=== PATIENT | female | born 1990 | race Caucasian/White ===

== ENCOUNTER 2016-08-17 11:18 | Emergency (ER) | payer SELFPAY ==
[~2016-08-17] VITALS: Ht 157.5 cm; Wt 85.1 kg
[~2016-08-17 11:18] MED LIST: ACET325T51 PO; BACL20TA PO; NO ROUTINE MEDS
[2016-08-17 11:21] VITALS: Ht 157.5 cm; Wt 85.1 kg
--- OUTSIDE RECORDS SUMMARY | 2016-08-17 11:21 | XMS REPORT | Continuity of Care Document ---
Author Author [facility] Organization [facility] Address Unknown Phone Unavailable Support Name Relationship Address Phone JULIANNA BAIG MD Caregiver [address] [place] [address] [place] [address] Unavailable BLAN[place], ANTION Next Of Kin [address] [phone] Insurance Providers Guarantor Ary Torres Address [address] [address] Email DENIED/04-04-16 Payer Self Pay Subscriber's Name Ary Torres Relationship 18 Self Chief Complaint and Reason for Visit Chief Complaint Low Back Pain or Injury Reason for Visit Contusion of rib on right side Fall on same level [id number] Problems Active Problems Medical Problem Onset Date Status Gastroenteritis Unknown Acute Sinusitis Unknown Acute Past Problems Medical Problem Onset Date Contusion of rib on right side Unknown Fall on same level Unknown Gastroenteritis Unknown Low back sprain Unknown Panic attacks Unknown Medications Current Home Medications Medication Dose Units Route Directions Days Qty Instructions Start Date Acetaminophen 325 Mg Tablet 2 Tab Oral Every 6 Hours as needed for Pain 03/03/16 Baclofen 20 Mg Tablet 1 Tab Oral Three Times A Day as needed for Pain &/Or Spasm 20 Tablet 04/04/16 No Routine Meds 03/03/16 Social History Social History Problem Response Recorded Date/Time Onset Date Status Hx Substance Use No 04/04/2016 5:16pm Not Applicable Not Applicable Hx Alcohol Use No 04/04/2016 5:16pm Not Applicable Not Applicable Query Response Start Date Stop Date Smoking Status Current some day smoker Hospital Discharge Instructions No hospital discharge instructions. Plan of Care Discharge Date 04/04/16 7:31pm Disposition 01 DISCHARGED HOME, SELF-CARE Condition at Discharge Stable Instructions/Education Provided Activity May Be Better then Rest for Low Back Pain Recovery Prescriptions See Medication Section Additional Instructions/Education Recommend ibuprofen 800 mg every 8 hours, will provide baclofen as an antispasmodic. Establish herself with a PCP for follow-up Care Plan and Goals Physician Care Plan Problem: Rib contusion, low back sprain Goal: Follow up with primary care provider Instructions: Take medications and follow care plan as discussed/written Functional Status No functional status results. Allergies, Adverse Reactions, Alerts No known allergies. Immunizations Query Response on File Recorded Date/Time Influenza Vaccine Hx NO 04/04/16 5:16pm Vital Signs Acute Vital Signs Vital Response Date/Time Temperature (Fahrenheit) 98.3 deg F (96.8 - 99.1) 04/04/2016 7:31pm Temperature (Calculated Celsius) 36.17871 degrees C (36.0 - 37.3) 04/04/2016 7:31pm Pulse Rate (adult) 66 bpm (60 - 100) 04/04/2016 7:31pm Respiratory Rate 20 breaths/min (10 - 20) 04/04/2016 7:31pm O2 Sat by Pulse Oximetry 94 % (90 - 100) 04/04/2016 7:31pm Blood Pressure 108/68 mm Hg 04/04/2016 7:31pm Height (Feet) 5 feet 04/04/2016 2:50pm Height (Inches) 4.00 inches 04/04/2016 2:50pm Weight (Kilograms) 65.000 kg 04/04/2016 2:50pm Body Mass Index (BMI) 24.0 04/04/2016 2:50pm Results Laboratory Results Test Name Result Units Flags Reference Collection Date/Time Result Date/ Time Comments White Blood Count 7.3 T/MM3 4.5-11.0 01/09/2016 9:12pm 01/09/2016 9: 19pm Red Blood Count 4.84 M/MM3 4.00-5.20 01/09/2016 9:12pm 01/09/2016 9: 19pm Hemoglobin 14.3 GM/DL -01/09/2016 9:12pm 01/09/2016 9:19pm Hematocrit 43.4 % 36-46 01/09/2016 9:12pm 01/09/2016 9:19pm Mean Corpuscular Volume 89.7 UM3 80-100 01/09/2016 9:12pm 01/09/2016 9: 19pm Mean Corpuscular Hemoglobin 29.5 UUG 26-34 01/09/2016 9:12pm 2015 9:19pm Mean Corpuscular Hemoglobin Concent 32.9 GM/DL 31-37 01/09/2016 9:12pm 01/09/2016 9:19pm RDW Standard Deviation 43.4 FL 36.9-50.2 01/09/2016 9:12p 01/09/2016 9 :19pm Platelet Count 243 T/MM3 130-400 01/09/2016 9:12pm 01/09/2016 9:19pm Mean Platelet Volume 10.6 UM3 9.4-12.4 01/09/2016 9:12pm 01/09/2016 9: 19pm Neutrophils (%) (Auto) 53.6 % 33-66 01/09/2016 9:12pm 01/09/2016 9: 19pm Lymphocytes (%) (Auto) 35.5 % 23-45 01/09/2016 9:12p 01/09/2016 9: 19pm Monocytes (%) (Auto) 5.8 % 0-9.0 01/09/2016 9:12p 01/09/2016 9:19pm Eosinophils (%) (Auto) 4.4 % H 0-4 01/09/2016 9:12p 01/09/2016 9:19pm Basophils (%) (Auto) 0.6 % 0-2 01/09/2016 9:12p 01/09/2016 9:19pm Immature Granulocyte % (Auto) 0.1 % 0.0-0.5 01/09/2016 9:12p 2015 9:19pm Absolute Neutrophils (auto) 3.9 T/MM3 1.8-7.7 01/09/2016 9:12p 2015 9:19pm Absolute Lymphocytes (auto) 2.6 T/MM3 1-4.8 01/09/2016 9:12p 2015 9:19pm Absolute Monocytes (auto) 0.4 T/MM3 0-0.8 01/09/2016 9:12p 01/09/2016 9:19pm Absolute Eosinophils (auto) 0.3 T/MM3 0-0.5 01/09/2016 9:12p 2015 9:19pm Absolute Basophils (auto) 0.0 T/MM3 0-0.2 01/09/2016 9:12p 01/09/2016 9:19pm Absolute Immature Granulocyte (auto 0.01 T/MM3 0.00-0.03 01/09/2016 9: 01/09/2016 9:19pm Icterus Index < 2 0-7 01/09/2016 9:01/09/2016 9:27pm Chemistry Specimen Hemolysis < 15 0-25 01/09/2016 9:01/09/2016 9 :27pm 0-25: Specimen Exhibited No Hemolysis. Turbidity < 20 0-20 01/09/2016 9:01/09/2016 9:27pm Sodium Level 144 MEQ/L 134-144 01/09/2016 9:01/09/2016 9:27pm Potassium Level 4.0 MEQ/L 3.6-5 01/09/2016 9:01/09/2016 9:27pm Chloride Level 104 MEQ/L 98-107 01/09/2016 9:01/09/2016 9:27pm Carbon Dioxide Level 27 MEQ/L 22-30 01/09/2016 9:01/09/2016 9: 27pm Anion Gap 13 MEQ/L 5-15 01/09/2016 9:01/09/2016 9:27pm Blood Urea Nitrogen 12.0 MG/DL 7-17 01/09/2016 9:01/09/2016 9: 27pm Creatinine 0.7 MG/DL 0.7-1.2 01/09/2016 9:01/09/2016 9:27pm BUN/Creatinine Ratio 17 RATIO 6-26 01/09/2016 9:01/09/2016 9:27pm Glomerular Filtration Rate Calc 100 01/09/2016 9:01/09/2016 9: 27pm Glucose Level 91 MG/DL 65-110 01/09/2016 9:01/09/2016 9:27pm Calculated Osmolality 277 MOSM/KG 261-280 01/09/2016 9:01/09/2016 9:27pm Calcium Level 9.5 MG/DL 8.4-10.2 01/09/2016 9:01/09/2016 9:27pm Total Bilirubin 0.50 MG/DL 0.20-1.30 01/09/2016 9:12p01/09/2016 9: 27pm Alkaline Phosphatase 93 U/L 38-126 01/09/2016 9:01/09/2016 9:27pm Total Protein 7.4 G/DL 6.3-8.2 01/09/2016 9:12pm 01/09/2016 9:27pm Albumin 4.4 G/DL 3.5-5.0 01/09/2016 9:12pm 01/09/2016 9:27pm Globulin 3.0 G/DL 2.4-3.6 01/09/2016 9:12pm 01/09/2016 9:27pm Albumin/Globulin Ratio 1.5 RATIO 1.1-2.2 01/09/2016 9:12pm 01/09/2016 9 :27pm Aspartate Amino Transf (AST/SGOT) 23 U/L 14-36 01/09/2016 9:12pm 2015 9:27pm Alanine Aminotransferase (ALT/SGPT) 34 U/L 9-52 01/09/2016 9:12pm 01/08 9:27pm Lipase 160 U/L 23-300 01/09/2016 9:12pm 01/09/2016 9:27pm Adenovirus (PCR) NEGATIVE NEGATIVE 01/09/2016 9:07pm 01/09/2016 10: 36pm Coronavirus Type 229E (PCR) NEGATIVE NEGATIVE 01/09/2016 9:07pm 01/08 10:36pm Coronavirus Type HKU1 (PCR) NEGATIVE NEGATIVE 01/09/2016 9:07pm 01/08 10:36pm Coronavirus Type NL63 (PCR) NEGATIVE NEGATIVE 01/09/2016 9:07pm 01/08 10:36pm Coronavirus Type OC43 (PCR) NEGATIVE NEGATIVE 01/09/2016 9:07pm 01/08 10:36pm Human Metapneumovirus (PCR) NEGATIVE NEGATIVE 01/09/2016 9:07pm 01/08 10:36pm Enterovirus/Rhinovirus (PCR) NEGATIVE NEGATIVE 01/09/2016 9:07pm 10:36pm Influenza Virus Type A (PCR) NEGATIVE NEGATIVE 01/09/2016 9:07pm 10:36pm Influenza Virus Type B (PCR) NEGATIVE NEGATIVE 01/09/2016 9:07pm 10:36pm Parainfluenza Type 1 (PCR) NEGATIVE NEGATIVE 01/09/2016 9:07pm 2015 10:36pm Parainfluenza Type 2 (PCR) NEGATIVE NEGATIVE 01/09/2016 9:07pm 2015 10:36pm Parainfluenza Type 3 (PCR) NEGATIVE NEGATIVE 01/09/2016 9:07pm 2015 10:36pm Parainfluenza Type 4 (PCR) NEGATIVE NEGATIVE 01/09/2016 9:07pm 2015 10:36pm Respiratory Syncytial Virus (PCR) NEGATIVE NEGATIVE 01/09/2016 9:07pm 01/09/2016 10:36pm Bordetella parapertussis DNA (PCR) NEGATIVE NEGATIVE 01/09/2016 9: 07pm 01/09/2016 10:36pm Chlamydia pneumoniae DNA (PCR) NEGATIVE NEGATIVE 01/09/2016 9:07pm 10:36pm Mycoplasma pneumoniae (PCR) NEGATIVE NEGATIVE 01/09/2016 9:07pm 01/08 10:36pm Urine Collection Type CLEANCATCH-MIDSTREAM 01/09/2016 10:00pm 01/08 10:05pm Urine Color YELLOW YELLOW 01/09/2016 10:00pm 01/09/2016 10:05pm Urine Turbidity CLOUDY CLEAR 01/09/2016 10:00pm 01/09/2016 10:05pm Urine Specific [place] 1.020 1.015-1.025 01/09/2016 10:00pm 2015 10:05pm Urine pH 7.5 5.0-8.0 01/09/2016 10:00pm 01/09/2016 10:05pm Urine Leukocyte Esterase NEGATIVE NEGATIVE 01/09/2016 10:00pm 2015 10:05pm Urine Nitrite NEGATIVE NEGATIVE 01/09/2016 10:00pm 01/09/2016 10: 05pm Urine Protein NEGATIVE NEGATIVE 01/09/2016 10:00pm 01/09/2016 10: 05pm Urine Glucose (UA) NEGATIVE NEGATIVE 01/09/2016 10:00pm 01/09/2016 10 :05pm Urine Ketones NEGATIVE NEGATIVE 01/09/2016 10:00pm 01/09/2016 10: 05pm Urine Urobilinogen 0.2 EU/DL NORMAL 01/09/2016 10:00pm 01/09/2016 10: 05pm Urine Bilirubin NEGATIVE NEGATIVE 01/09/2016 10:00pm 01/09/2016 10: 05pm Urine Blood NEGATIVE NEGATIVE 01/09/2016 10:00pm 01/09/2016 10:05pm Urinalysis Comment MICROSCOPIC NOT IND. 01/09/2016 10:00pm 2015 10:05pm Procedures No known history of procedures. Encounters Encounter Location Arrival/Admit Date Discharge/Depart Date Attending Provider Departed Emergency Room [facility] 04/04/16 2:40pm 04/04/16 7: 31pm JULIANNA BAIG MD Departed Emergency Room [facility] 03/03/16 12:53pm 03/03/16 1: 30pm JULYARACELI DO Departed Emergency Room [facility] 01/09/16 8:04pm 01/09/16 11: 15pm DANISHA KIDD MD Recent Diagnosis
[2016-08-17] MEDS ORDERED: NORMAL SALINE 1,000 ML IV ONE (11:33)
[2016-08-17 11:59] LABS: BASOPHILS # (AUTO) 0.1 T/MM3 (0-0.2); BASOPHILS % (AUTO) 0.8 % (0-2); EOSINOPHILS # (AUTO) 0.4 T/MM3 (0-0.5); EOSINOPHILS % (AUTO) 5.8 % (0-4); HCT - HEMATOCRIT 43.3 % (36-46); HGB - HEMOGLOBIN 14.4 GM/DL (12-16); IMMATURE GRANULOCYTE # (AUTO) 0.01 T/MM3 (0.00-0.03); IMMATURE GRANULOCYTE % (AUTO) 0.2 % (0.0-0.5); MEAN CORPUSCULAR HGB 29.8 UUG (26-34); MEAN CORPUSCULAR HGB CONC(MCHC 33.3 GM/DL (31-37); MEAN CORPUSCULAR VOLUME 89.6 UM3 (80-100); MEAN PLATELET VOLUME 10.8 UM3 (9.4-12.4); MONOCYTES # (AUTO) 0.4 T/MM3 (0-0.8); MONOCYTES % (AUTO) 5.3 % (0-9.0); NEUTROPHILS #(AUTO)-ABSOLUTE 3.8 T/MM3 (1.8-7.7); NEUTROPHILS % (AUTO) 57.9 % (33-66); RED BLOOD COUNT 4.83 M/MM3 (4.00-5.20); WBC - WHITE BLOOD COUNT 6.6 T/MM3 (4.5-11.0)
[2016-08-17 12:06] LABS: INR 1.05 (0.77-1.03); PROTHROMBIN TIME 11.5 SEC (9.48-12.52); PTT 30.6 SEC (24-36)
[2016-08-17 12:08] LABS: ANION GAP 11 MEQ/L (5-15); BUN/CREATININE RATIO 9 RATIO (6-26); CHLORIDE 107 MEQ/L (98-107); CO2 - CARBON DIOXIDE 26 MEQ/L (22-30); CREATININE 0.7 MG/DL (0.7-1.2); GLOMERULAR FILTRATION RATE 100; GLUCOSE 102 MG/DL (65-110); POTASSIUM 3.9 MEQ/L (3.6-5); SODIUM 144 MEQ/L (134-144)
[2016-08-17 12:25] LABS: HCG-QUANTITATIVE < 2.39 mIU/mL
[2016-08-17 13:24] LABS: BLOOD, URINE 3+ (NEGATIVE); COLOR,URINE YELLOW (YELLOW); LEUKOCYTE ESTERASE ,URINE NEGATIVE (NEGATIVE); NITRITE,URINE NEGATIVE (NEGATIVE); UROBILINOGEN,URINE 0.2 EU/DL (NORMAL)
[2016-08-17 13:32] LABS: WBC,URINE 0-1 /HPF (0-5)
[2016-08-17 13:33] LABS: BACTERIA,URINE 1+ (NEGATIVE); SQUAMOUS EPITHELIAL CELL,UR 0-5
--- NOTE | 2016-08-17 13:41 | ERPDOC ---
Departure Disposition Decision Date: August 17, 2016 Disposition Decision Time: 13:39 Disposition: 01 DISCHARGED HOME, SELF-CARE Impression Impression Impression: Primary Impression: Vaginal bleeding Additional Impression: Hirsutism Severity: Moderate Condition: Improved Seen By: Physician only Referrals: YOUR DOCTOR Patient Instructions: First Trimester Vaginal Bleed (ED) Problems/Meds/Labs Reviewed?: Yes Medications reviewed and manag: Yes Additional Instructions: You have vaginal bleeding without abnormal labs. You may have had a miscarriage. Follow up with your doctor if your bleeding does not slow/stop over the next few days. Consider a discussion with your doctor of testing for PCOS and treatment to improve your chances of conception and carrying to term. Follow up care ordered?: Yes Mental Status: Alert, Oriented HPI - Female General Chief Complaint: Female Urogenital Problems Stated Complaint: WEAKNESS, POSS ANEMIA Time Seen by Provider: 11:33 Source: patient Exam Limitations: no limitations HPI - Female Initial Comments 26yo , LMP 04 JUL 2016 presents today with vaginal bleeding. Pt had a home test that was 'faintly positive'. Today, pt sat on the toilet; when she stood up there was blood everywhere and a 'ping pong sized clot'. Pt has never passed a clot that big. She is here for evaluation. Occurred At: home Onset: Rapid Duration: 4-6 hrs Pain Scale: Now & Worst: 2/10 Severity/Quality: cramping Location: vaginal Radiation: none Activities at Onset: none Prior Genitourinary Problems: none Modifying Factors: IMPROVES WITH: analgesics, rest, WORSE WITH: movement Associated Symptoms: denies symptoms Hx of Similar Symptoms: No Is Pt now?: Yes Hx Last Menstrual Period: 07/04/2016 : 1 Para: 0 Number of Living Children: 0 Abortions (Spont. & Elec.): 1 Allergies: Coded Allergies: No Known Allergies (Unverified , 08/17/16) Past History Past Medical History Female: miscarriage Psychological: anxiety Surgical History Denies Surgeries Social History Substance Use Type: does not use Alcohol Intake: none Housing: homeless Household Members: significant other Current Occupational Status: employed Review of Systems Female: other (Vaginal bleeding) : see HPI Physical Exam General General Nourishment: well nourished, well developed, appears stated age, no acute distress, adult, obese General Body Habitus: well groomed Vitals and Pain First Documented Vital Signs Date Time Temp Pulse Resp B/P Pulse Ox O2 Delivery O2 Flow Rate FiO2 08/17/16 11:21 98.4 67 18 116/83 100 Room Air Weight: Kilograms: 85.100 Height (feet): 5 Height (inches): 2.00 Triage Pain Scale: RN VS reviewed by Provider: Yes Normal Exams: Head: Normocephalic w/o trauma Eyes: Pupils are PERRLA w/ EOMI, No scleral icterus, irritation ENMT: No facial trauma, nasal exudates, pharyngeal erythema Neck: Full range of motion, without adenopathy, JVD Chest/Resp: Clear all hannah, with good airflow, and symmetry bilaterally CV: Regular rate and rhythm, without murmur or gallop, Pulses 2+ all extremities Lymphatic: No lymphadenopathy Musculoskeletal: No tenderness, or deformity noted Integumentary: No rashes, hives, or bruising noted Neurologic: Patient is alert, and oriented Psychiatric: Patient exhibits, appropriate attention ENMT (brief) Comments Dark, shaved hair on underside of pts mandible Differential Diagnoses Considering: Complete (spont), Missed (spont), Threatened AB (spont), Dysmenorrhea, Menorrhagia, New Diagnosis, Pyelonephritis, Renal Colic, UTI Progress Results/Orders Orders Procedure Category Date Status Time Iv Lock (Ed Only) EDM 08/17/16 Transmitted 11:33 Orthostatic Bp/Pulse EDM 08/17/16 Transmitted 11:33 Oxygen Administration EDM 08/17/16 Transmitted 11:33 Cbc W/Auto LAB 08/17/16 Complete Diff-Reflex Manual 11:33 Bmp - Basic Metabolic LAB 08/17/16 Complete Panel 11:33 INR LAB 08/17/16 Complete 11:33 PTT LAB 08/17/16 Complete 11:33 Hcg-Quantitative LAB 08/17/16 Complete 11:33 Type And Screen BBK 08/17/16 Complete 11:33 Normal Saline (Normal PHA 08/17/16 Complete Saline Iv) 11:33 UA, LAB 08/17/16 Complete Dip&Micro(Complete) & 13:11 Lab Results Laboratory Tests Test 08/17/16 11:48 08/17/16 13:11 White Blood Count 6.6T/MM3 Red Blood Count 4.83M/MM3 Hemoglobin 14.4GM/DL Hematocrit 43.3% Mean Corpuscular Volume 89.6UM3 Mean Corpuscular Hemoglobin 29.8UUG Mean Corpuscular Hemoglobin Concent 33.3GM/DL RDW Standard Deviation 43.1FL Platelet Count 233T/MM3 Mean Platelet Volume 10.8UM3 Immature Granulocyte % (Auto) 0.2% Neutrophils (%) (Auto) 57.9% Lymphocytes (%) (Auto) 30.0% Monocytes (%) (Auto) 5.3% Eosinophils (%) (Auto) 5.8% Basophils (%) (Auto) 0.8% Absolute Immature Granulocyte (auto 0.01T/MM3 Absolute Neutrophils (auto) 3.8T/MM3 Absolute Lymphocytes (auto) 2.0T/MM3 Absolute Monocytes (auto) 0.4T/MM3 Absolute Eosinophils (auto) 0.4T/MM3 Absolute Basophils (auto) 0.1T/MM3 Prothromb Time International Ratio 1.05 Activated Partial Thromboplast Time 30.6SEC Turbidity < 20 Sodium Level 144MEQ/L Potassium Level 3.9MEQ/L Chloride Level 107MEQ/L Carbon Dioxide Level 26MEQ/L Anion Gap 11MEQ/L Blood Urea Nitrogen 6.0MG/DL Creatinine 0.7MG/DL Glomerular Filtration Rate Calc 100 BUN/Creatinine Ratio 9RATIO Glucose Level 102MG/DL Calculated Osmolality 275MOSM/KG Calcium Level 9.0MG/DL Icterus Index < 2 Beta HCG, Quantitative < 2.39mIU/mL Chemistry Specimen Hemolysis < 15 Urine Collection Type Cleancatch-midstream Urine Color Yellow Urine Turbidity Clear Urine pH 8.0 Urine Specific [place] 1.010 Urine Protein Negative Urine Glucose (UA) Negative Urine Ketones Negative Urine Blood 3+ Urine Nitrite Negative Urine Bilirubin Negative Urine Urobilinogen 0.2EU/DL Urine Leukocyte Esterase Negative Urine RBC 3-5/HPF Urine WBC 0-1/HPF Urine Squamous Epithelial Cells 0-5 Urine Bacteria 1+ Urine Culture Indicated Cult not indicated Medications Current ED Medications Sodium Chloride (Normal Saline IV) 1,000 ml @ 0 mls/hr Q0M ONCE IV Last administered on 08/17/16 12:00; Start 08/17/16 at 11:33; Stop 08/17/16 at 11:35 ; Status DC Progress Progress 26yo woman with vaginal bleeding 6wks after her last menses and a 'faintly positive' urine test. Pt likely did have a miscarriage; pt now . Pt offered and declines pelvic exam at this time. Recommended that pt f /u with her PCM, especially if vaginal bleeding does not ease/stop. Recommended that pt discuss possibility of PCOS/treatment with PCM in order to enhance chances of . Pt voiced understanding of dx, prognosis, tx, and f/u need. ARACELI JOHNSON DO August 17, 2016 13:41
[2016-08-17 13:50] VITALS: BP 121/78; PULSE 72; RESP 18; TEMP 98.4; O2SAT 99
== END 2016-08-17 13:50 | disposition home or self-care (01) ==
LOC: ED 11:18
DX: N93.9 Abnormal uterine and vaginal bleeding, unspecified (principal); L68.0 Hirsutism
CPT/HCPCS: 36000; 80048; 81001; 84702; 85025; 85610; 85730; 86850; 86900; 86901